=== PATIENT | male | born 1965 | race Caucasian/White ===

== ENCOUNTER 2022-11-17 08:41 | Day surgery (SDC) | payer OTHER, SELFPAY ==
[2022-11-02 11:57] VITALS: BMI 34.4
--- NOTE | 2022-11-16 12:36 | WPDANESEPPF ---
Anes - Initial Pre Proc Eval Procedure: Operation Date: 11/17/22 10:30 Proposed Procedures p Screening Colonoscopy - Gurpreet Cheng MD Date/Time: 11/16/22 12:36 Surgeon: Gurpreet Cheng MD Pre Op Diagnosis: Neoplasm Screening Patient Data Age: 56 Gender: M Height: 1.83 m Weight: 115 kg Allergies Allergy/AdvReac Type Severity Reaction Status Date / Time No Known Allergies Allergy Verified 11/17/22 09:07 Home Medications Medication Instructions Recorded Confirmed Type glimepiride 1 mg tablet 1 mg PO QAM #90 tabs 10/10/22 11/02/22 Rx lisinopril 20 mg tablet 20 mg PO DAILY #90 tabs 10/10/22 11/02/22 Rx metformin 500 mg tablet,extended 1,000 mg PO BID #360 tabs 10/10/22 11/02/22 Rx release 24hr metoprolol succinate 25 mg 25 mg PO DAILY #90 tabs 10/10/22 11/02/22 Rx tablet,extended release 24 hr pantoprazole 40 mg tablet,delayed 40 mg PO QAM #90 tabs 10/10/22 11/02/22 Rx release rosuvastatin 20 mg tablet 20 mg PO QHS #90 tabs 10/10/22 11/02/22 Rx sildenafil 100 mg tablet 100 mg PO DAILY PRN sexual 10/10/22 11/02/22 Rx activity #10 tabs Patient hx anesthesia problems: none Family hx anesthesia problems: none Results Review: All pre-operative results and documents have been reviewed as part of the pre-operative evaluation. [facility] Past Medical History Medical History (Updated 11/17/22 @ 09:38 by Gurpreet Cheng MD) Anxiety Colon cancer screening Diabetes Dyslipidemia GERD (gastroesophageal reflux disease) History of [place] (myocardial infarction) 2019 Hypertension Surgical History Surgical History (Updated 10/10/22 @ 15:44 by Jolie Stone PA-C) History of bilateral carpal tunnel release History of heart artery stent 2019 History of inguinal hernia repair Right Family History Family History ) Father Diabetes mellitus Heart disease Grandparent Carcinoma of colon Social History Social History ) Social History: Years smoked: 15 Smoking status: Never smoker Tobacco type: cigarettes Second hand tobacco smoke exposure: No Alcohol intake: current Drinks per week: 14 Alcohol use details: 2x week Substance use: never Substance use type: does not use Lack of Transportation: No Lack of Food: Never True Current Housing: I Have Housing Concerned About Future Housing: No Difficulty Paying Gas/Electric Bills: No Difficulty Paying for Meds: No Currently Unemployed: No Difficulty w/ Childcare or Family Care: No Living arrangements: with family Occupation/Education: occupation 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 Gender identity (if verbalized by the patient): Male Sexual Orientation (if Verbalized by the Patient): Straight or Heterosexual Spiritual care concerns: No Anes - Eval Final PreProcedure Day of Procedure 11/16/22 12:36 Patient weight: obese Heart: regular rate and rhythm Lungs: clear to auscultation Airway: Mallampati scale class II Neurological: alert and oriented Last oral intake: >/= 8 hours ASA classification: III Emergent: no Anesthetic plan: proceed Anesthesia type and monitoring: general GIVS and standard monitoring Results Review: All pre-operative results and documents have been reviewed as part of the pre-operative evaluation. Informed Consent: The patient's anesthetic plan and its attendant risks and benefits were discussed with the patient/family/POA. Questions were solicited and answers provided to the satisfaction of the patient/family/POA.
[2022-11-17 09:09] VITALS: BP 134/86; PULSE 69; RESP 15; TEMP 36.7; O2SAT 99; BMI 32.8
[2022-11-17] MEDS: LACTATED RINGERS 1,000 ML 150 ML IV CONT (09:19)
[2022-11-17 09:20] LABS: Glucose Point of Care 173 mg/dl (65-105)
--- NOTE | 2022-11-17 09:38 | PM.HPGS ---
History of Present Illness History of Present Illness Consent: Risks, benefits, and alternatives have been discussed and questions answered. Patient agrees to proceed with procedure. Chief complaint: Neoplasm Screening Narrative: Israel Tyler is a 56 year old male here for first screening colonoscopy Review of Systems Constitutional: Constitutional: Denies headache(s) and Denies weakness Eyes: Eyes: Denies blurry vision ENT: Reports Normal hearing present, Denies headache(s) and Denies neck pain Cardiovascular: Cardiovascular: Denies chest pain and Denies dyspnea Respiratory: Respiratory: Denies dyspnea Gastrointestinal: Gastrointestinal: Reports no additional gastrointestinal complaints Genitourinary: Genitourinary: Denies dysuria Musculoskeletal: Musculoskeletal: Denies neck pain Integumentary/Breasts: Skin/Breast: Denies dry skin Neurologic: Reports Normal hearing present, Denies headache(s) and Denies weakness Psychiatric: Psychiatric: Denies anxiety Endocrine: Endocrine: Denies change in body appearance Hematologic/Lymphatic: Hematologic/Lymphatic: Denies easy bleeding Allergic/Immunologic: Allergic/Immunologic: Denies urticaria PMFSH Past Medical History Medical History (Updated 11/17/22 @ 09:38 by Gurpreet Cheng MD) Anxiety Colon cancer screening Diabetes Dyslipidemia GERD (gastroesophageal reflux disease) History of [place] (myocardial infarction) 2019 Hypertension Surgical History Surgical History (Updated 10/10/22 @ 15:44 by Jolie Stone PA-C) History of bilateral carpal tunnel release History of heart artery stent 2019 History of inguinal hernia repair Right Family History Family History ) Father Diabetes mellitus Heart disease Grandparent Carcinoma of colon Social History Social History ) Social History: Years smoked: 15 Smoking status: Never smoker Tobacco type: cigarettes Second hand tobacco smoke exposure: No Alcohol intake: current Drinks per week: 14 Alcohol use details: 2x week Substance use: never Substance use type: does not use Lack of Transportation: No Lack of Food: Never True Current Housing: I Have Housing Concerned About Future Housing: No Difficulty Paying Gas/Electric Bills: No Difficulty Paying for Meds: No Currently Unemployed: No Difficulty w/ Childcare or Family Care: No Living arrangements: with family Occupation/Education: occupation 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 Gender identity (if verbalized by the patient): Male Sexual Orientation (if Verbalized by the Patient): Straight or Heterosexual Spiritual care concerns: No Meds Home Medications and Allergies Home Medications Medication Instructions Recorded Confirmed Type glimepiride 1 mg tablet 1 mg PO QAM #90 tabs 10/10/22 11/02/22 Rx lisinopril 20 mg tablet 20 mg PO DAILY #90 tabs 10/10/22 11/02/22 Rx metformin 500 mg tablet,extended 1,000 mg PO BID #360 tabs 10/10/22 11/02/22 Rx release 24hr metoprolol succinate 25 mg 25 mg PO DAILY #90 tabs 10/10/22 11/02/22 Rx tablet,extended release 24 hr pantoprazole 40 mg tablet,delayed 40 mg PO QAM #90 tabs 10/10/22 11/02/22 Rx release rosuvastatin 20 mg tablet 20 mg PO QHS #90 tabs 10/10/22 11/02/22 Rx sildenafil 100 mg tablet 100 mg PO DAILY PRN sexual 10/10/22 11/02/22 Rx activity #10 tabs Allergies Allergy/AdvReac Type Severity Reaction Status Date / Time No Known Allergies Allergy Verified 11/17/22 09:07 Vital Signs Vital Signs - 24 hr 11/17/22 09:09 Temperature 98.0 F Pulse Rate 69 Respiratory Rate 15 Blood Pressure 134/86 Pulse Oximetry 99 Oxygen Delivery Room Air Exam Const: General: comfortable and no acute distress HENMT: Face/Nose/Sinus: Normal nares present Eyes:
[2022-11-17 09:56] VITALS: BP 111/77; PULSE 75; RESP 16; O2SAT 96
--- NOTE | 2022-11-17 10:03 | WPDANESPN ---
Anes - Prog Note Post-Op Date/Time: 11/17/22 10:03 Cardiovascular status: normal Respiratory status: normal Airway patency: baseline Mental status: baseline Post-Op hydration status: normal Vital Signs: Last Vital Signs Temp 36.7 C 11/17/22 09:09 Pulse 75 11/17/22 09:56 Resp 16 11/17/22 09:56 BP 111/77 11/17/22 09:56 Pulse Ox 96 11/17/22 09:56 O2 Del Method Room Air 11/17/22 09:56 Pain Score (VAS): 0 I/O: Intake & Output 11/16/22 11/17/22 11/17/22 23:59 07:59 15:59 Intake Total 500 Balance 500 11/17/22 09:16 POC Capillary Glucose 173 H Post-procedural complaints: none Patient Feedback: Patient satisfied with anesthetic care. Other Findings: Patient vital signs back to baseline. Patient denies nausea and vomiting. Patient's pain under control. Patient OK for discharge.
[2022-11-17 10:06] VITALS: BP 118/85; PULSE 62; RESP 16; O2SAT 97
[2022-11-17 10:16] VITALS: BP 121/81; PULSE 58; RESP 18; O2SAT 99
[2022-11-17 10:25] VITALS: BP 124/84; PULSE 64; RESP 20; O2SAT 99
== END 2022-11-17 10:50 | disposition home or self-care (01) ==
PROVIDERS: PCP Physician Assistant Medical; Visit Provider Internal Medicine Gastroenterology
PROC: 0DJD8ZZ Inspection of Lower Intestinal Tract, Via Natural or Artificial Opening Endoscopic (ICD-10-PCS; CPT 45378; principal; 2022-11-17 10:30)
DX: Z12.11 Encounter for screening for malignant neoplasm of colon (principal)
CPT/HCPCS: 45385

== ENCOUNTER 2022-11-17 08:44 | Outpatient (NON) | payer OTHER, SELFPAY | END 2022-11-17 08:45 | disposition home or self-care (01) | LOC: ANHLAB 11-18 08:46 | PROVIDERS: PCP Physician Assistant Medical; Visit Provider Internal Medicine Gastroenterology | DX: Z12.11 Encounter for screening for malignant neoplasm of colon (principal) | CPT/HCPCS: 88305 ==